=== PATIENT | male | born 1955 | race Caucasian/White ===

== ENCOUNTER 2019-12-20 16:12 | Emergency (ER) | payer OTHER ==
[~2019-12-20] VITALS: Ht 165.1 cm; Wt 81.7 kg
[~2019-12-20 16:12] MED LIST: ACYC800 PO; DIAZ5 PO; HYDACE10B PO; HYDACE5 PO; HYDR1TAB94 PO; OMEP20ER PO; OXYACE5T PO; PERM5TC TOP; RXOXYACE PO
[2019-12-20] MEDS ORDERED: IBU800 MG PO (20:25)
[2019-12-20] MEDS ORDERED: CEPH500 PO (20:25)
== END 2019-12-20 20:36 | disposition home or self-care (01) ==
LOC: ER 16:12
DX: L03.032 Cellulitis of left toe (principal)
CPT/HCPCS: 73630; 99283-25; A9270; A9270-GY